=== PATIENT | male | born 1935 | race African-American/Black ===

== ENCOUNTER 2017-01-07 15:38 | Emergency (ER) | payer OTHER, BC ==
[2017-01-07 15:48] VITALS: TEMP 98; BMI 29.8
--- NOTE | 2017-01-07 16:38 | PDOC ---
History of Present Illness <Jacqueline Henson - Last Filed: 01/07/17 20:29> - General History Source: Patient, Family Exam Limitations: No Limitations - History of Present Illness Initial Comments: 01/07/17 17:24 This 81yo M with PMHX HTN, Diabetes, "heart condition" s/p quadruple bypass and pacemaker placement, resolved Paget's disease of bone, prostate CA s/p resection 7-10 years ago presently on Ecotram presents due to an unwitnessed fall 3 hours prior. States his right knee buckled and gave out as he was walking up the stairs, and pt tumbled down 4-5 wooden steps to the marble floor and hit the back of his head. Pt not sure of LOC. Pt denies headache, lightheadedness/dizzyness, CP, palpitations before the fall. States he couldn't talk 1-2 minutes after the fall, and was found by his son 5 minutes after the fall. States he has some right shoulder and left arm soreness, pain in the back of his head. Denies any current CP, SOB, palpitations, vision changes, ALBERTO, lightheadedness/dizziness, N/V, or issues with walking including ataxia. This story was corroborated by his son who adds the pt had no dropping of the face when he found him, no ataxia or weakness of muscles after the event. Pt was a 1ppd smoker for 10 years. Quit 1976. Pt was a "heavy" drinker (amount unspecified) for 15y. Quit 1978. Denies illicit drug use. 01/07/17 17:35 Timing/Duration: 1-3 hours Severity: mild Associated Symptoms: denies: chest pain, diaphoresis, headaches, loss of appetite, malaise, nausea/vomiting, seizure, syncope, weakness <Arden Liz - Last Filed: 01/07/17 21:05> - General Chief Complaint: Injury Stated Complaint: FALL/ HEAD PAIN Time Seen by Provider: 01/07/17 16:37 Past History <Jacqueline Henson - Last Filed: 01/07/17 20:29> - Travel Traveled outside of the country in the last 30 days: No Close contact w/someone who was outside of country & ill: No - Past Medical History Cancer: Yes (prostate in remission) Cardiac Disorders: Yes (pacemaker, bypass) Hx Myocardial Infarction: No CVA: No Diabetes: Yes HTN: Yes Hypercholesterolemia: Yes - Surgical History Abdominal Surgery: No Appendectomy: No Cardiac Surgery: Yes (pacemaker, quadruple bypass) Cholecystectomy: No - Immunization History Immunization Up to Date: Yes - Psycho/Social/Smoking Cessation Hx Suicidal Ideation: No Smoking History: Former smoker Have you smoked in the past 12 months: No If you are a former smoker, when did you quit?: 1976 Information on smoking cessation initiated: No Hx Alcohol Use: No Drug/Substance Use Hx: No <Arden Liz - Last Filed: 01/07/17 21:05> - Past Medical History Allergies/Adverse Reactions: Allergies Allergy/AdvReac Type Severity Reaction Status Date / Time No Known Allergies Allergy Verified 01/07/17 15:42 Home Medications: Ambulatory Orders Aspirin [Ecotrin] 81 mg PO DAILY 01/07/17 Carvedilol 12.5 mg PO BID 01/07/17 Cholecalciferol (Vitamin D3) [Vitamin D3 -] 1,000 unit PO DAILY 01/07/17 Docusate Sodium 100 mg PO DAILY 01/07/17 Furosemide [Lasix] 40 mg PO DAILY 01/07/17 Glimepiride [Amaryl] 4 mg PO DAILY 01/07/17 Insulin Glargine,Hum.rec.anlog [Lantus (nf)] 16 units SQ HS 01/07/17 Isosorbide Mononitrate [Imdur -] 30 mg PO DAILY 01/07/17 Lansoprazole [Prevacid -] 15 mg PO DAILY 01/07/17 Spironolactone 25 mg PO DAILY 01/07/17 Valsartan 80 mg PO DAILY 01/07/17 Review of Systems - Review of Systems Able to Perform ROS?: Yes Is the patient limited Syriac proficient: No Constitutional: No: Loss of Appetite, Malaise, Weakness HEENTM: No: Eye Pain, Blurred Vision, Recent change in vision, Double Vision, Ear Pain, Tinnitus, Hearing Loss Respiratory: No: Shortness of Breath Cardiac (ROS): No: Chest Pain, Irregular Heart Rate, Lightheadedness, Palpitations, Syncope, Chest Tightness ABD/GI: Yes: Poor Fluid Intake. No: Nausea, Poor Appetite, Vomiting Musculoskeletal: No: Muscle Pain, Muscle Weakness Integumentary: Yes: Lumps (back of head) Neurological: No: Headache, Numbness, Seizure, Weakness, Unsteady Gait, Ataxia All Other Systems: Reviewed and Negative <Arden Liz - Last Filed: 01/07/17 21:05> *Physical Exam - Vital Signs Last Vital Signs Temp Pulse Resp BP Pulse Ox 98.0 F 57 L 18 145/70 98 01/07/17 15:43 01/07/17 15:43 01/07/17 15:43 01/07/17 15:43 01/07/17 15:43 <Jacqueline Henson - Last Filed: 01/07/17 20:29> - Vital Signs Last Vital Signs Temp Pulse Resp BP Pulse Ox 98.0 F 57 L 18 145/70 98 01/07/17 15:43 01/07/17 15:43 01/07/17 15:43 01/07/17 15:43 01/07/17 15:43 - Physical Exam General Appearance: Yes: Nourished, Appropriately Dressed HEENT: positive: EOMI, Normal ENT Inspection, Normal Voice, Symmetrical, TMs Normal, Pharynx Normal, Other (right pupil sluggish to light). negative: Scleral Icterus (R), Scleral Icterus (L) Neck: negative: Decreased range of motion, Tender lateral, Tender midline Respiratory/Chest: positive: Lungs Clear, Normal Breath Sounds. negative: Rapid RR, Decreased Breath Sounds, Crackles, Rales, Stridor, Wheezing Cardiovascular: positive: Regular Rhythm, Regular Rate. negative: Murmur, Bradycardia, Tachycardia, Irregularly Irregular, Irregular Gastrointestinal/Abdominal: positive: Normal Bowel Sounds, Soft Musculoskeletal: positive: Normal Inspection. negative: CVA Tenderness, Decreased Range of Motion, Vertebral Tenderness Integumentary: positive: Other (posterior right head hematoma, superior to inion. measures 5cm x 5cm. No open wounds noted on body.) Neurologic: positive: mems engineer II-XII NML intact, Fully Oriented, Alert, Normal Mood/ Affect, Normal Response, Motor Strength 5/5. negative: Facial Droop, Numbness, Confused, Disoriented <Arden Liz - Last Filed: 01/07/17 21:05> Heart Score/ECG Review - ECG Intrepretation Comment:: 01/07/17 17:48 ECG obtained at 17:38 pace rhythm replaced normal sinus rhythm in previous EKG from April 2009. Vent rate 61 bpm <Jacqueline Henson - Last Filed: 01/07/17 20:29> ED Treatment Course - LABORATORY CBC & Chemistry Diagram: 01/07/17 17:39 01/07/17 17:39 - RADIOLOGY Radiograph Interpretation: 01/07/17 18:[address] as reviewed by Dr. Driscoll reports moderate volume loss without gross evidence of acute intracranial pathology. Mild extracranial soft tissue swelling over right side of the occipital lobe 01/07/17 20:30 Chest X-ray as reviewed by Dr. Driscoll reports interval left pacer projecting over the left midlung, laterally obsuring the underlying lung with the three leads in satisfactory position. No pneumothorax. Minimal atelectatic changes in the left lung base without gross evidence infiltrates <Jacqueline Henson - Last Filed: 01/07/17 20:29> - LABORATORY CBC & Chemistry Diagram: 01/07/17 17:39 01/07/17 17:39 <Arden Liz - Last Filed: 01/07/17 21:05> Medical Decision Making - Medical Decision Making 01/07/17 17:35 This 81yo M with PMHX HTN, Diabetes, "heart condition" s/p quadruple bypass and pacemaker placement, resolved Paget's disease of bone, prostate CA s/p resection 7-10 years ago presently on Ecotram presents for fall at 230p. Posterior subdural hematoma -r/o pontine hemorrhage, intracerebral or intraparenchymal hemorrhage, epidural hematoma -CT head w/o contrast -NPO until scan R/o cardiac etiology -EKG, troponins Metabolic derangement -BMP, CBC w/ diff, glucose check -IV fluids -CXR <Arden Liz - Last Filed: 01/07/17 21:05> *DC/Admit/Observation/Transfer - Attestations Scribe Attestion: 01/07/17 17:52 Documentation prepared by Jacqueline Henson, acting as medical delivery technician for Arden Liz DO. <Jacqueline eHnson - Last Filed: 01/07/17 20:29> - Discharge Dispostion Admit: No - Attestations Physician Attestion: 01/07/17 16:37 I, Dr. Arden Liz, attest that this document has been prepared under my direction and personally reviewed by me in its entirety. I further attest, that it accurately reflects all work, treatment, procedures and medical decision -making performed by me. <Arden Liz - Last Filed: 01/07/17 21:05> Diagnosis at time of Disposition: Dehydration, mild Traumatic hematoma of scalp Qualifiers: Encounter type: initial encounter Qualified Code(s): S00.03XA - Contusion of scalp, initial encounter - Discharge Dispostion Disposition: HOME Condition at time of disposition: Improved - Referrals Referrals: Alex Rodríguez MD [Primary Care Provider] - - Patient Instructions Printed Discharge Instructions: DI for Closed Head Injury, DI for Dehydration - - Adult Additional Instructions: [place]- Sorry this happened to you today. Make sure you stay well hydrated. Follow up with your doctor next week. Return to us if any problems. Best- Dr. Arden Liz
[2017-01-07 18:20] LABS: BASOPHIL 0.2 % (0-2.0); EOSINOPHIL 0.4 % (0-4.5); MCHC 32.9 g/dl (32.0-35.9); MEAN CELL VOLUME 88.2 fl (80-96); NEUTROPHILS 73.5 % (42.8-82.8); PLATELET COUNT 145 K/MM3 (134-434); RDW 13.4 % (11.9-15.9); WHITE BLOOD COUNT 10.1 K/mm3 (4.0-10.0)
[2017-01-07 18:35] LABS: INR 1.11 (0.82-1.09); PROTHROMBIN TIME (PATIENT) 12.2 SEC (9.98-11.88)
[2017-01-07 18:47] LABS: ALBUMIN 3.9 g/dl (3.4-5.0); ANION GAP 9 (8-16); BILIRUBIN,TOTAL 0.5 mg/dL (0.2-1.0); CALCIUM 8.9 mg/dL (8.5-10.1); CO2 27 mmol/L (21-32); CREATININE 1.2 mg/dL (0.7-1.3); GLUCOSE,RANDOM 181 mg/dL (74-106); SGOT/AST 15 U/L (15-37); SGPT/ALT 21 U/L (12-78); TOT PROT 7.7 g/dl (6.4-8.2)
[2017-01-07 18:50] LABS: ALK PHOS 94 U/L (45-117); CPK 152 IU/L (39-308); TROPONIN I < 0.02 ng/ml (0.00-0.05)
[2017-01-07] MEDS ORDERED: SODIUM CHLORIDE 1,000 ML IV STA (20:24)
[2017-01-07 20:36] VITALS: BP 141/67; PULSE 61
--- NOTE | 2017-01-09 08:16 | EKG ---
Test Reason : Blood Pressure : / mmHG Vent. Rate : 061 BPM Atrial Rate : 061 BPM P-R Int : 000 ms QRS Dur : 174 ms QT Int : 466 ms P-R-T Axes : 000 190 -35 degrees QTc Int : 469 ms AV dual-paced rhythm WITH FREQUENT ventricular-paced complexes Biventricular pacemaker detected ABNORMAL ECG WHEN COMPARED WITH ECG OF 23-FEB-2009 16:59, ELECTRONIC VENTRICULAR PACEMAKER HAS REPLACED SINUS RHYTHM VENT. RATE HAS DECREASED BY 38 BPM Confirmed by MACI STOCKTON MD ([id number]) on 01/09/2017 8:16:06 AM Referred By: Confirmed By:MACI STOCKTON MD
== END 2017-01-07 21:39 | disposition home or self-care (01) ==
LOC: JER 15:38
PROC: 3E0337Z Introduction of Electrolytic and Water Balance Substance into Peripheral Vein, Percutaneous Approach (ICD-10-PCS; principal; 2017-01-07)
DX: S00.03XA Contusion of scalp, initial encounter (principal); E86.0 Dehydration; I10 Essential (primary) hypertension; E11.9 Type 2 diabetes mellitus without complications; E78.00 Pure hypercholesterolemia, unspecified; Z87.891 Personal history of nicotine dependence; Z95.1 Presence of aortocoronary bypass graft; Z95.0 Presence of cardiac pacemaker; Z79.82 Long term (current) use of aspirin; Z79.4 Long term (current) use of insulin; Z85.46 Personal history of malignant neoplasm of prostate
CPT/HCPCS: 36415; 70450-TC; 71020-TC; 80053; 82553; 83880; 84484; 85025; 85610; 93005; 93010; 99283-25